=== PATIENT | male | born 1995 ===

== ENCOUNTER 2018-03-07 16:14 | Emergency (ER) | payer SELFPAY ==
[~2018-03-07] VITALS: Ht 177.8 cm; Wt 89.5 kg
[2018-03-07 16:31] VITALS: BP 132/60; TEMP 99.1
[2018-03-07 17:56] LABS: COLLECTION METHOD CLEAN CATCH
[2018-03-07 18:03] LABS: MUCOUS Present /lpf; PH 5 (5-8); SQUAMOUS EPITHELIAL None Seen /hpf; URINE APPEARANCE Clear; URINE BACTERIA None Seen /hpf; URINE BILIRUBIN Negative (NEGATIVE); URINE BLOOD Negative (NEGATIVE); URINE COLOR Yellow; URINE GLUCOSE Negative (NEGATIVE); URINE KETONE Negative (NEGATIVE); URINE LEUKOCYTE ESTERASE Negative (NEGATIVE); URINE NITRATE Negative (NEGATIVE); URINE PROTEIN(semi-quant) Negative (NEGATIVE); URINE RBC 0-2 /hpf; URINE UROBILINOGEN >=4.0 mg/dL (NEGATIVE); URINE WBC 0-2 /hpf
[2018-03-07 18:19] VITALS: PULSE 80
== END 2018-03-07 18:18 | disposition home or self-care (01) ==
LOC: COL.ER 16:14
PROVIDERS: Nurse Practitioner Primary Care
DX: L30.9 Dermatitis, unspecified (principal); B37.49 Other urogenital candidiasis; F17.210 Nicotine dependence, cigarettes, uncomplicated

== ENCOUNTER 2018-05-09 18:13 | Emergency (ER) | payer SELFPAY ==
[~2018-05-09] VITALS: Ht 177.8 cm; Wt 94.5 kg
[2018-05-09 18:33] VITALS: BP 124/59; TEMP 98.3
[2018-05-09] MEDS ORDERED: CEPHALEXIN500 M1 PO (19:34)
[2018-05-09 20:00] VITALS: PULSE 76
== END 2018-05-09 20:00 | disposition home or self-care (01) ==
LOC: COL.ER 18:13
DX: L08.9 Local infection of the skin and subcutaneous tissue, unspecified (principal)

== ENCOUNTER 2019-03-23 02:20 | Emergency (ER) | payer SELFPAY ==
[~2019-03-23] VITALS: Ht 180.3 cm; Wt 93.2 kg
[~2019-03-23 02:20] MED LIST: CEPHALEXIN500 M1 PO
[2019-03-23 02:23] VITALS: BP 133/64; TEMP 98
[2019-03-23] MEDS ORDERED: CEPHALEXIN500 M1 PO ×3 (02:51→03:17)
[2019-03-23] MEDS ORDERED: DOXYCYCLINE 10100 MG PO ×3 (02:51→03:17)
[2019-03-23 03:25] VITALS: PULSE 71
== END 2019-03-23 03:25 | disposition home or self-care (01) ==
LOC: COL.ER 02:20
DX: N50.89 Other specified disorders of the male genital organs (principal); F17.210 Nicotine dependence, cigarettes, uncomplicated

== ENCOUNTER 2019-09-27 14:28 | Emergency (ER) | payer SELFPAY ==
[~2019-09-27] VITALS: Ht 180.3 cm; Wt 95.5 kg
[~2019-09-27 14:28] MED LIST changes: +DOXYCYCLINE 10100 MG PO
[2019-09-27 14:33] VITALS: TEMP 98.1
[2019-09-27] MEDS ORDERED: CEPHALEXIN500 M1 PO (16:22)
[2019-09-27 16:34] VITALS: BP 126/80; PULSE 75
== END 2019-09-27 16:35 | disposition home or self-care (01) ==
LOC: COL.ER 14:28
DX: S61.215A Laceration without foreign body of left ring finger without damage to nail, initial encounter (principal); F17.210 Nicotine dependence, cigarettes, uncomplicated; Z23 Encounter for immunization; W25.XXXA Contact with sharp glass, initial encounter; Y92.009 Unspecified place in unspecified non-institutional (private) residence as the place of occurrence of the external cause

== ENCOUNTER 2020-06-07 22:56 | Emergency (ER) | payer SELFPAY ==
[~2020-06-07] VITALS: Ht 180.3 cm; Wt 93.2 kg
[2020-06-07 23:00] VITALS: TEMP 98.3
[2020-06-07 23:15] LABS: COLLECTION METHOD CLEAN CATCH
[2020-06-07 23:24] LABS: MUCOUS Present /lpf; PH 6 (5-8); SQUAMOUS EPITHELIAL None Seen /hpf; URINE APPEARANCE Hazy; URINE BACTERIA Occasional /hpf; URINE BILIRUBIN Negative (NEGATIVE); URINE BLOOD Negative (NEGATIVE); URINE COLOR Yellow; URINE GLUCOSE Negative (NEGATIVE); URINE KETONE Negative (NEGATIVE); URINE LEUKOCYTE ESTERASE 3+ (NEGATIVE); URINE NITRATE Negative (NEGATIVE); URINE PROTEIN(semi-quant) Negative (NEGATIVE)
[2020-06-08] MEDS ORDERED: CEPHALEXIN500 M1 PO (00:02)
[2020-06-08 00:13] VITALS: BP 107/59; PULSE 69
== END 2020-06-08 00:34 | disposition home or self-care (01) ==
LOC: COL.ER 22:56
PROVIDERS: Nurse Practitioner
DX: N34.2 Other urethritis (principal); Z87.891 Personal history of nicotine dependence
CPT/HCPCS: J0696